=== PATIENT | female | born 1980 | race African-American/Black ===

== ENCOUNTER 2017-05-27 20:48 | Emergency (ER) | payer MEDICAID ==
[~2017-05-27] VITALS: Ht 167.6 cm; Wt 86.2 kg
[2017-05-27 20:51] VITALS: BP 120/82
[2017-05-27] MEDS ORDERED: HYDR25TA PO (20:57)
[2017-05-27] MEDS ORDERED: LISI10TA5 PO (20:58)
== END 2017-05-28 03:11 | disposition left against medical advice (07) ==
LOC: ER 20:48
DX: M54.9 Dorsalgia, unspecified (principal); Z53.21 Procedure and treatment not carried out due to patient leaving prior to being seen by health care provider